=== PATIENT | female | born 1975 | race Caucasian/White ===

== ENCOUNTER 2021-01-20 16:32 | Outpatient (CLI) | payer OTHER, SELFPAY ==
--- NOTE | ~2021-01-20 | MM_ITS ---
EXAMINATION: MM scrn emilia implant BI w yinka HISTORY: Screening mammogram TECHNIQUE: Craniocaudal and mediolateral oblique 3-D tomosynthesis images with implant displacement a nd synthetic 2-D images were generated. Craniocaudal and mediolateral oblique views of the breasts wi thout implant displacement were obtained using full field digital mammography. CAD analysis was submi tted and interpreted. COMPARISON: Comparison to multiple prior studies sequentially, with oldest reviewed study dated 12/13. BREAST PARENCHYMAL COMPOSITION: The breasts are heterogeneously dense, which may obscure small masses . FINDINGS: There is no evidence of suspicious mass, calcification, or architectural distortion to sugg est malignancy in either breast. There has been no suspicious interval change. IMPRESSION: 1. No mammographic evidence of malignancy. 2. Recommend routine screening mammography in one year. BI-RADS Category 1: Negative Reviewed, dictated and finalized at location A.
== END 2021-01-20 16:33 | disposition home or self-care (01) ==
LOC: ANHIMG 16:41
PROVIDERS: PCP Family Medicine; Visit Provider Obstetrics & Gynecology
DX: Z12.31 Encounter for screening mammogram for malignant neoplasm of breast (principal)
CPT/HCPCS: 77063; 77067

== ENCOUNTER 2021-03-18 12:42 | Outpatient (CLI) | payer OTHER, SELFPAY ==
--- NOTE | ~2021-03-18 | MMUS_ITS ---
EXAMINATION: MM diag emilia implant RT w yinka, US breast RT limited HISTORY: Palpable right breast abnormality. TECHNIQUE: Additional 3-D tomosynthesis images of the right breast were performed and synthetic 2-D i mages were generated. CAD analysis was submitted and interpreted. High resolution Limited right breas t ultrasound was performed. COMPARISON: Comparison to multiple prior studies sequentially, with oldest reviewed study dated 03/2012. BREAST PARENCHYMAL COMPOSITION: The breasts are heterogenously dense, which may obscure small masses. FINDINGS: MAMMOGRAPHIC FINDINGS: There are no suspicious masses, calcifications or architectural distortion in the right breast to sug gest malignancy. On the spot MLO view there is a small lymph node in the area of palpable concern ove rlying the pectoralis muscle. ULTRASOUND: Limited right breast ultrasound: At 10:00, 12 cm from the nipple nipple in the area of palpable nellie rn there is a 5 mm lymph node. No suspicious masses to suggest malignancy. IMPRESSION: 1. No evidence for malignancy in the right breast. 2. Routine yearly screening mammogram and regular clinical breast examination are recommended. BI-RADS Category 2: Benign finding(s). Reviewed, dictated and finalized at location A. IMPRESSION: 1. No evidence for malignancy in the right breast. 2. Routine yearly screening mammogram and regular clinical breast examination a re recommended. BI-RADS Category 2: Benign finding(s).
== END 2021-03-18 12:43 | disposition home or self-care (01) ==
PROVIDERS: PCP Family Medicine; Visit Provider Obstetrics & Gynecology
DX: N63.31 Unspecified lump in axillary tail of the right breast (principal)
CPT/HCPCS: 76642; 77061; 77065; G0279

== ENCOUNTER 2024-03-20 12:09 | Outpatient (CLI) | payer OTHER, SELFPAY ==
--- NOTE | ~2024-03-20 | MM_ITS ---
EXAMINATION: MM scrn emilia implant BI w yinka HISTORY: Screening mammogram TECHNIQUE: Craniocaudal and mediolateral oblique 3-D tomosynthesis images with implant displacement a nd synthetic 2-D images were generated. Craniocaudal and mediolateral oblique views of the breasts wi thout implant displacement were obtained using full field digital mammography. CAD analysis was submi tted and interpreted. COMPARISON: 01/20/2021, 12/13/2018 BREAST PARENCHYMAL COMPOSITION: The breasts are heterogeneously dense, which may obscure small masses . FINDINGS: There is no evidence of suspicious mass, calcification, or architectural distortion to sugg est malignancy in either breast. There has been no suspicious interval change. IMPRESSION: No mammographic evidence of malignancy. Recommend routine screening mammography in one year. BI-RADS Category 1: Negative Reviewed, dictated and finalized at [facility].
== END 2024-03-20 12:10 | disposition home or self-care (01) ==
LOC: CHSIMG 12:12
PROVIDERS: Visit Provider Nurse Practitioner Family
DX: Z12.31 Encounter for screening mammogram for malignant neoplasm of breast (principal)
CPT/HCPCS: 77063; 77067

== ENCOUNTER 2025-01-28 09:51 | Outpatient (CLI) | payer OTHER, SELFPAY ==
--- NOTE | ~2025-01-28 | MMUS_ITS ---
EXAMINATION: US breast RT complete, MM diag emilia implant RT w yinka HISTORY: Right breast pain TECHNIQUE: Additional 3-D tomosynthesis images of the right breast were performed and synthetic 2-D i mages were generated. CAD analysis was submitted and interpreted. High resolution complete right elis st ultrasound was performed. COMPARISON: Comparison to multiple prior studies sequentially, with oldest reviewed study dated 12/13. BREAST PARENCHYMAL COMPOSITION: Dense: The breasts are heterogeneously dense, which may obscure small masses FINDINGS: MAMMOGRAPHIC FINDINGS: There are no suspicious masses, calcifications or architectural distortion in the right breast to sug gest malignancy. There is a subpectoral breast implant. ULTRASOUND: Complete US of all 4 quadrants of the breast/s and retroareolar region was reviewed. Normal heterogen eous echotexture without focal solid or cystic mass. IMPRESSION: 1. No evidence for malignancy in the right breast. 2. Routine yearly screening mammogram and regular clinical breast examination are recommended. BI-RADS Category 1: Negative Reviewed, dictated and finalized at location B. IMPRESSION: 1. No evidence for malignancy in the right breast. 2. Routine yearly screening mammogram and regular clinical breast examination a re recommended. BI-RADS Category 1: Negative
--- OUTSIDE RECORDS SUMMARY | 2025-01-28 10:04 | XMS_ITS ---
Author Organization [facility] [address] [facility] ([address]) Address [address] [place] [id number] Care Team Providers Care Dental Professional Name Role Phone Lee Parker [phone] REASON FOR VISIT Pellet Insertion #2/Tirzepatide follow-up Encounters Encounter Location Date Provider Diagnosis [facility] ([address]) [address] [address] 11/15/2023 Lee Parker Plan Of Treatment No Information Progress Notes * Cristi WHITLOCKaDOB:1975 (49 yo F)Acc No.[id number]:11/15/2023 Weight Loss Patient: Cristi CANALESa Provider: Ke Parker MD :1975 A ge:48 Y S ex:Female Date:11/15/2023 Address:[facility] [address] [facility] Subjective: * Chief Complaints: * 1 . Pellet Insertion #2/Tirzepatide follow-up. * Medical History: Objective: * Vitals: Assessment: Plan: * Treatment: * Billing Information: * Visit Code: * Procedure Codes: * Electronic signature of Flaco Parker MD, FAAAAI on 01/28/2025 at 10:04 AM CDT Sign off status: Pending * Provider: Ke Parker MD Date: 11/15/2023 Generated for Printi ng/Faxing/eTransmitting on: 01/28/2025 10:04 AM CDT
--- OUTSIDE RECORDS SUMMARY | 2025-01-28 10:04 | XMS_ITS | Encounter Summary ---
Author Organization [facility] Address [address] [place] [address] Care Team Providers Care Steward/Stewardess Club Car Name Role Phone Walt Warren MD Primary Care Provider [phone] Reason for Referral * Surgical (Routine) - Closed Specialty Diagnoses / Procedures Referred By Nabila estrella Referred To Contact UROLOGY Diagnoses Calculus of ureter ureteral calculi Procedures Case request operating room: CYSTOSCOPY, URETEROSCOPY, STONE, STENT Delmar Garcia MD [facility] [address], [address], [address] [address] Phone: tel: fax: Referral ID Status Reason Start Date Expiration Date Visits Re quested Visits Authorized [id number] Closed 03/20/2019 04/19/2020 1 1 Encounter Details Date Type Department Care Team (Late st Contact Info) Description 03/20/2019 Prep for Procedure [facility] [address] [id number] Delmar Garcia MD Social History Tobacco Use Types Packs/Day Years Used Date Smoking Tobacco: Never Smokeless Tobacco: Never Alcohol Use Standard Drinks/Week Comments Yes 0 (1 standard drink = 0.6 oz pur e alcohol) AUDIT-C Answer Date Recorded Frequency of Alcohol Consumption 2-3 times a cheryle tripp 03/14/2019 Average Number of Drinks Not on file 019 Frequency of Binge Drinking Not on file 03/03 Comments No Sex and Gender Information Value Date Recorded Sex Assigned at Not on file Legal Sex Female 7:56 PM CDT Gender Identity Not on file Sexual Orientation Not on file documented as of this encounter Plan of Treatment Scheduled Orders Name Type Priority Associated Diagnoses Orde r Schedule Case request operating room: CYSTOSCOPY, URETEROSCOPY, STONE, STENT Case Request Routine Once for 1 Occur rences starting 03/20/2019 until 03/20/2019 documented as of this encounter Visit Diagnoses Diagnosis Ureteral calculus- Primary Calculus of ureter documented in this encounter Care Teams Steward/Stewardess Club Car Relationship Specialty Start Date End Date Walt Warren MD [address] [place] [address] PCP - General FAMILY PRACTICE 08/17/18 documented as of this encounter
--- OUTSIDE RECORDS SUMMARY | 2025-01-28 10:04 | XMS_ITS | Encounter Summary ---
Author Organization [facility] Address [address] [place] [address] Care Team Providers Care Live Study Manager Name Role Phone Walt Warren MD Primary Care Provider [phone] Encounter Details Date Type Department Care Team (Late st Contact Info) Description 01/31/2018 Abstract [facility] Conversion Joon Law MD [address] [address] Social History Tobacco Use Types Packs/Day Years Used Date Smoking Tobacco: Never Assessed Comments Unknown Sex and Gender Information Value Date Recorded Sex Assigned at Not on file Legal Sex Female 7:56 PM CDT Gender Identity Not on file Sexual Orientation Not on file documented as of this encounter Miscellaneous Notes * Letter - Joon Law MD - 01/31/2018 12:00 AM CDT 01-31-2018 , [place] [address] : 1975 Lab Order: CMP; U WReflex to Cx, CBC Z00.00 Encntr for general adult medical exam w/o abnormal findings Fasting [x] Non-Fasting [] Normal [x] Stat [] DYE HAND documented in this encounter Plan of Treatment Not on file documented as of this encounter Visit Diagnoses Not on filedocumented in this encounter Care Teams Live Study Manager Relationship Specialty Start Date End Date Walt Warren MD [address] [place] [address] PCP - General FAMILY PRACTICE 08/17/18 documented as of this encounter
--- OUTSIDE RECORDS SUMMARY | 2025-01-28 10:04 | XMS_ITS | Patient Health Record ---
Author Organization Replaced By [facility] [employer] [facility] ([address]) Address [address] [place] [address] Care Team Providers Care Under Water Assistant Name Role Phone Lee Parker Unavailable [phone] Reason For Referral No Information Medications Medication SIG (Take, Route, Frequency, Duration) Notes Start Date End Date Status SUPERVISOR TRAVEL TRAILER THYROID 30 mg 1 tab(s) orally once a day x 1 week; Duration: 7 days No substitions. 08/23/2023 Active SUPERVISOR TRAVEL TRAILER Thyroid 30 MG 1 tab(s) orally once a day x 1 week; Duration: 7 days No substitions. 08/23/2023 Active SUPERVISOR TRAVEL TRAILER THYROID 60 mg 1 tab(s) orally once a day, thereafter; Duration: 30 days No substitutions, start after 1 week of 30 mg daily. 08/23/2023 Active SUPERVISOR TRAVEL TRAILER Thyroid 60 MG 1 tab(s) orally once a day, thereafter; Duration: 30 days No substitutions, start after 1 week of 30 mg daily. 08/23/2023 Active Problems Problem Type SNOMED Code ICD Code Onset Dates Problem Status W/U Status Risk Notes Problem Hypothyroidism (43087097) Hypothyroidism, unspecified (E03.9) Active confirmed Problem Morbid obesity (disorder) (727362740) Morbid (severe) obesity due to excess calories (E66.01) Active confirmed Problem Malaise (726253677) Other malaise (R53.81) Active confirmed Problem Chronic fatigue syndrome (disorder) (24883593) Chronic fatigue, unspecified (R53.82) Active confirmed Problem Fatigue (92245104) Other fatigue (R53.83) Active confirmed Problem Hormone replacement therapy (305445051) Hormone replacement therapy (Z79.890) Active confirmed Plan Of Treatment Pending Test Test Name Order Date -HRT Female Post Pellet w/o TPO 08/23/19 24
--- OUTSIDE RECORDS SUMMARY | 2025-01-28 10:05 | XMS_ITS | Clinical Summary ---
Author Organization [facility] Address [address] [place] [address] Care Team Providers Care Oil Plant Operator Name Role Phone Walt Warren MD Primary Care Provider [phone] Allergies No known active allergies Medications No known medications Active Problems Problem Noted Date Diagnosed Date Ureteral calculus 03/14/2019 Renal colic on left side 03/14/2019 Family History Medical History Relation Comments renal failure Father Kidney Cancer Paternal Grandmother bladder cancer Paternal Grandmother Relation Status Comments Father Paternal Grandmother Social History Tobacco Use Types Packs/Day Years Used Date Smoking Tobacco: Never Smokeless Tobacco: Never Alcohol Use Standard Drinks/Week Comments Yes 0 (1 standard drink = 0.6 oz pur e alcohol) OCCASIONAL AUDIT-C Answer Date Recorded Frequency of Alcohol Consumption 2-3 times a wee k 03/14/2019 Average Number of Drinks Not on file Frequency of Binge Drinking Not on file 03/03 Comments No Sex and Gender Information Value Date Recorded Sex Assigned at Not on file Legal Sex Female 7:56 PM CDT Gender Identity Not on file Sexual Orientation Not on file Last Filed Vital Signs Vital Sign Reading Time Taken Comments Blood Pressure 106/54 01/26/2022 9:39 AM CDT Pulse 58 01/26/2022 9:39 AM CDT Temperature 36.5 C (97.7 F) 03/26/2019 10:50 AM CDT Respiratory Rate 16 01/26/2022 9:39 AM CDT Oxygen Saturation 96% 01/26/2022 9:39 AM CDT Inhaled Oxygen Concentration - - Weight 87.5 kg (193 lb) 01/26/2022 9:09 AM CDT Height 170.2 cm (5' 7) 01/26/2022 9:09 AM CDT Body Mass Index 30.23 01/26/2022 9:09 AM CDT Plan of Treatment Health Maintenance Due Date Last Done Comments Cervical Cancer Screening Pa p Smear (Age 30 to 64) Every 3 Years 1974 Colorectal Cancer Screening Colonoscopy (10 Years) 1974 Annual Physical 1977 DTaP, Tdap and Td Vaccines ( 1 - Tdap) 1993 Hepatitis B Vaccines (1 of 3 - 19+ 3-dose series) 1993 Cervical Cancer Screening Pa p with HPV Testing (Age 30 to 64) Every 5 Years 2004 Cervical Cancer Screening with HPV 2004 Mammogram Screening 2014 COVID-19 Vaccine ( - 2023-2 5 season) 2024 Pneumococcal Vaccine: 50+ Ye ars (1 of 1 - PCV) 2024 Zoster Vaccines (1 of 2) 2024 Hepatitis C Completed 03/18/2019 Meningococcal B Vaccine Aged Out No l onger eligible based on patient's age to complete this topic Meningococcal Vaccine Aged Out No mayco anne eligible based on patient's age to complete this topic RSV Immunizations Under 20 Months Aged Out No longer eligible based on patient's age to complete this topic Medical Devices Implanted Type Area Technical Sourcing Recruiter Device Identifier Shelf Expiration Date Model / Serial / Lot Breast Implants Silicone Ureteral Stent Procedures Procedure Name Priority Date/Time Associated Diagnosis Comments HEPATITIS C ANTIBODY Routine 03/18/2019 8:02 AM CDT Cervical lymphadenopathy from Last 3 Months or Most Recently Relevant to Health Maintenance Results * HEPATITIS C ANTIBODY (03/18/2019 8:02 AM CDT) HEPATITIS C AB NON-REACTI VE NON-REACTI VE 03/18/2019 3:[address] [facility] 03/18/2019 8:02 AM CDT us Walt Warren MD LABORATORY Final Res ult [facility] [address] [place] [address], from Last 3 Months or Most Recently Relevant to Health Maintenance Insurance [employer] Advance Directives Documents on File Type Date Recorded Patient Collection Systems Administrator Expl anation Advance Directives and Living Will 03/15/2019 12:00 AM ADVANCED DIRECTIVES Care Teams Oil Plant Operator Relationship Specialty Start Date End Date Walt Warren MD [address] [place] [address] PCP - General FAMILY PRACTICE 08/17/18
--- OUTSIDE RECORDS SUMMARY | 2025-01-28 10:05 | XMS_ITS ---
Author Organization [facility] ([address]) Address [address] [facility] [address] [place] [address] Care Team Providers Care Medical Claims Manager Name Role Phone Lee Parker Unavailable [phone] [facility], Provider Unavailable Unavailab le REASON FOR VISIT Multum To Medispan Conversion Encounter Medications Medication SIG (Take, Route, Frequency, Duration) Notes Start Date End Date Status DIET KITCHEN COOK Thyroid 30 MG 1 tab(s) orally once a day x 1 week; Duration: 7 days No substitions. 08/23/2023 Active DIET KITCHEN COOK Thyroid 60 MG 1 tab(s) orally once a day, thereafter; Duration: 30 days No substitutions, start after 1 week of 30 mg daily. 08/23/2023 Active Encounters Encounter Location Date Provider Diagnosis [address] [address] 12/16/2023 Provider ZZ-Migration Plan Of Treatment No Information Progress Notes * Cristi WHITLOCKaDOB:1975 (49 yo F)Acc No.[id number]:12/16/2023 Patient: Tressa VALENCIAARMANDOCristia Provider: Ke conway Migration :1975 A ge:48 Y S ex:Female Date:12/16/2023 [facility] Subjective: * Chief Complaints: * 1 . Multum To Medispan Conversion Encounter. * Medical History: * Medications: T aking DIET KITCHEN COOK Thyroid 30 MG Tablet 1 tab(s) orally once a day x 1 week , Notes to Pharmacist: No substitions., Taking DIET KITCHEN COOK Thyroid 60 MG Tablet 1 tab(s) orally once a day, thereafter , Notes to Pharmacist: No substitutions, start after 1 week of 30 mg daily. Objective: * Vitals: Assessment: Plan: * Treatment: * Billing Information: * Visit Code: * Procedure Codes: * Electronic signature of Juliette PARMAR-Migration on 01/28/2025 at 10:04 AM CDT Sign off status: Pending * Provider: Ke conway Migration Date: 0 12/16/2023 Generated for Giles dockery/Scarlet/Shantalitting on: 01/28/2025 10:04 AM CDT
--- OUTSIDE RECORDS SUMMARY | 2025-01-28 10:05 | XMS_ITS | Data Portability ---
Author Organization [facility], [address] [facility] ([place]) Address [address] 4th [place] [address] Care Team Providers Care Accounting Auditor Name Role Phone BISHNU ELLISON Primary Care Provider Assessment Encounter Date Assessment Date Assessment LastModified by Organization Details LastModified Time 12/14/2023 12/14/2023 We talked about stretching. We will start physical therapy. She will call me back with who she wants to see. We gave her stretching exercises. We will ice this. Start the above prednisone. If she is not improving with her symptoms, we will refer to Dr. Polanco. Patient will contact us if worsening symptoms or decides she wants to do that. At this point, I think this is more of a soft tissue injury and I do not think an x-ray would be helpful, as she did not have any kind of injury, but we may consider doing that if she is having further problems. [facility] [email or web address] Not available 12/20/2023 12:29:20 03/06/2024 03/06/2024 1. We will try t o get her into endocrinology for discussing hormone levels and now that she has this diagnosis of pre-diabetes, but she knows it may book quite a ways out. She shows a good understanding. 2. We talked about the different medications to try to help her with weight loss. She will check with her insurance company on coverage. She has no MEN syndrome, no history of pancreatitis in her family. 3. Discussed the diagnosis of pre-diabetes. We will keep an eye on her A1c and recheck that again in 6 months either through her resource where she gets her lab work done or through us. We discussed treating her like she is a diabetic to prevent her from becoming diabetic, but she is already doing a low carb diet, very physically active, and so I am not sure how many more changes that she could make. That is why I want to try to promote helping her with weight loss if her insurance company will cover one of the above meds. 4. Already on a probiotic. Already seeing a GI specialist. Already has a scope scheduled for tomorrow. Encouraged her to discuss these symptoms with them. We will check an ova and parasites as she did travel to [place] not that long ago. We talked about using Beano or Gas-X prophylactically before she eats something that she thinks may cause bloating. She shows a good understanding of all the above and intent to comply with that plan. [facility] [email or web address] Not available 03/06/2024 18:02:02 05/21/2024 05/21/2024 We will start topiramate and see if that helps with her headaches as well as weight loss. We will start with 25 mg at bedtime and go up to b.i.d. and if she is tolerating this well after a month or two, would be comfortable with increasing to 50 mg twice a day. Patient shows a good understanding of all that and intent to comply with that plan. We will stop the phentermine as it was making her feel unusual. She will follow back in 3 months if she wants to continue the topiramate, sooner if having any problems or difficulties. [facility] [email or web address] Not available 05/22/2024 08:01:45 12/11/2024 12/11/2024 1. Continue phentermine. We will try going up to 30 mg and see if she tolerates this. If not, we will reduce back to 15 mg. She will continue to work on low carb diet and increasing exercise. 2. For the headaches, she will continue topiramate b.i.d. 3. B12 deficiency. She will continue her B12 injections. She will follow back up in 6 months, sooner if having any problems or difficulties. She shows good understanding of the above and intent to comply with the plan. [email or web address] Not available 12/11/2024 20:11:25 Plan of Treatment Reminders Order Date Submit Date Provider Last Modified By Organization Details Last Modified Time Details Appointments None recorded. Lab ova and parasites, unspecified specimen 2023 024 [email or web address] [facility] Only - [facility], [facility] [address], [address], 5 09:22:21 Referral None recorded. Procedures None recorded. Surgeries None recorded. Imaging None recorded. Medication Orders topiramate 25 mg tablet 2024 025 [facility], [address], [place], [address], 5 11:02:21 phentermine 15 mg capsule 2024 025 [facility], [address], [place], [address], 5 11:02:31 topiramate 25 mg tablet 2023 024 [id number], [address], [place], [address], 4 16:15:31 prednisone 20 mg tablet 2023 024 [facility], [address], [place], [address], 4 09:59:18 Patient TargetsNo targets recorded. Patient InstructionsNo instructions recorded. Reason for Referral None Reported. Results Created Date Observation Date Name Description Value Unit Range Abnormal Flag Note LastModifiedBy Organization Detail LastModifiedTime 03/06/2003/06/2024 vitam in B12, serum vitamin B12 357 pg/mL 180-91 4 <145 pg/mL = Defic ient 145 - 180 pg/mL = Inter media te Not Available [facility] [address] [place] [address], [address], 03/06/2024 15:56:46 04/18/20 24 04/01/2024 CT, abdom en + pelvi s, w/ contr ast No observ ation record ed. BARCODE Not Available 2023 11:52:17 04/29/20 24 08/24/2023 imagi ng/di agnos tic resul t No observ ation record ed. [email or web address] Not Available 16:21:05 05/08/20 24 05/08/2024 CT, heart , w/o contr ast, w/ coron anisha calci um score [facility] [address] [place] [address] Teleph one Name: Justina Will [id number] Exam Date: 2023 Age: 48 Physic juan luis: ROSA Ballard Mariss a : 1975 Examin ation: CT CARDIA C CALCIU M SCORE WO SCREEN ING EXAM: CT Cardia c Calciu m Score withou t screen ing HISTOR Y: Family histor y of chavez ry artery diseas e. TECHNI QUE: Low-do se CT images of the heart and chest were perfor med withou t contra st. Automa aldo exposu re contro l was utiliz ed to sugges t modula tion techni que. COMPAR TOM: None. FINDIN GS: Calciu m score is 0. Cardia c size is normal . The thorac ic aorta is normal in calibe r. There is a calcif ied granul sil in the right lower lobe. Remain ing lungs are clear. There is mild diffus e peribr onchia l thicke tanya. No effusi on or lympha denopa thy presen t. There are bilate ral breast implan ts. IMPRES ALEJANDRA: Calciu m score is 0. Electr onical ly signed in Alvarado cribe by: DAVID BRANNON MD on:05/08/2024 3:19 PM cc: Page PAGE 1 of NUMIAG ES 1 LEE Sc Only - [facility] [address] [place] [address], [address], 05/09/2024 10:18:41 05/29/20 24 05/27/2024 XR, shoul oracio, 2 or more view No observ ation record ed. BARCODE Not Available 2023 12:48:53 07/05/20 25 12/03/2018 imagi ng/di agnos tic resul t No observ ation record ed. [email or web address] Not Available 0 01/04/2025 01:30:25 01/05/20 25 12/05/2018 imagi ng/di agnos tic resul t No observ ation record ed. [email or web address] Not Available 0 01/04/2025 01:30:27 01/05/20 25 12/13/2018 imagi ng/di agnos tic resul t No observ ation record ed. [email or web address] Not Available 0 01/04/2025 01:30:28 Result Notes Documentation Provider Name and Address Organization Details Recorded Time Ct, Heart, W/o Contrast, W/ Coronary Calcium Score : [facility] [address] [place] [address] Name: Justina Whitlock Exam Date: 05/08/2024 Age: 48 Physician: ROSA Ballard Marissa : 1975 Examination: CT CARDIAC CALCIUM SCORE WO SCREENING EXAM: CT Cardiac Calcium Score without screening HISTORY: Family history of coronary artery disease. TECHNIQUE: Low-dose CT images of the heart and chest were performed without contrast. Automated exposure control was utilized to suggest modulation technique. COMPARISON: None. FINDINGS: Calcium score is 0. Cardiac size is normal. The thoracic aorta is normal in caliber. There is a calcified granuloma in the right lower lobe. Remaining lungs are clear. There is mild diffuse peribronchial thickening. No effusion or lymphadenopathy present. There are bilateral breast implants. IMPRESSION: Calcium score is 0. Electronically signed in PowerScribe by: DAVID BRANNON MD on:05/08/2024 3:19 PM cc: Page PAGE 1 of NUMPAGES 1 Not Available [facility] 05/09/2024 10:18:41 Problems Name Problem SNOMED Code Status Onset Date Resolution Date Notes Provider Name and Address Organization Details Recorded Time Hyperlipide isa 79496912 Active 2023 Jaymie Ballard PA-C [address] [place], [address] [place] [address] 4 08:33:36 Low back pain 230461813 Active 2023 Jaymie Ballard PA-C [address] [facility] [address], [place], [address], [facility] 4 08:33:45 Attention deficit hyperactivi ty disorder 728111856 Active 2023 Jaymie Ballard PA-C [address], [place], [address], [facility] 4 08:34:01 Testosteron e level below reference range 256677484 Active 2023 Jaymie Ballard PA-C [address], [place], [address], [facility] 4 08:34:16 Colitis 21607685 Active 2023 Jaymie Ballard PA-C [address] [facility], [place], [address], [facility] 4 08:34:26 History of calculus of kidney 635633535 Active 2023 Jaymie Ballard PA-C [address] , [place], [address], [facility] 4 08:35:06 Serum vitamin B12 below reference range 741559050 Active 2023 Jaymie Ballard PA-C [address], [place], [address], [facility] 4 08:35:57 Reduced libido 4587764 Active 2023 Jaymie Ballard PA-C [address], [place], [address], [facility] 4 08:36:23 Pain of left shoulder joint 2055501762711 9109 Active 2023 Jaymie Ballard PA-C [address] [place] [address], [address], [facility] 4 10:38:30 Decreased range of shoulder movement 893677698 Active 2023 Jaymie Ballard PA-C [address] [place] [address], [address], [facility] 4 10:38:44 Prediabetes 681573514 Active 2023 Jaymie Ballard PA-C [address] [place] [address], [address], [facility] 4 18:24:18 Family history of premature coronary heart disease 704034825 Active 2023 Jaymie Ballard PA-C [address] [facility], [place], [address], [facility] 4 22:44:22 Body mass index 30+ - obesity 699788807 Active 2023 [facility] 4 12:23:14 Acute cough Active 2024 [facility] 5 09:36:58 Problem Notes None recorded. Medical Equipment None Reported. Allergies No known drug allergies Medications Name Sig Start Date Stop Date Status Note LastModified by Organization Details LastModified Time cyclobenzap rine 10 mg tablet TAKE 1 TABLET BY MOUTH TWICE A DAY NEEDED FOR MUSCLE SPASMS 12/13 completed Not Available Not Available Not Available tretinoin 0.1 % topical cream APPLY TO FACE EVERY DAY active Not Available Not Available No t Available doxycycline hyclate 100 mg capsule TAKE 1 CAPSULE BY MOUTH TWICE DAILY UNTIL GONE 12/13 completed Not Available Not Available Not Available CombiPatch 0.05 mg-0.14 mg/24 hr transdermal APPLY 1 PATCH TOPICALLY TO SKIN TWICE A WEEK 12/11 completed Not Available Not Available Not Available fluconazole 150 mg tablet TAKE 1 TABLET BY MOUTH ONCE 03/06 completed Not Available Not Available Not Available benzonatate 200 mg capsule TAKE 1 CAPSULE BY MOUTH THREE TIMES DAILY NEEDED FOR COUGH FOR UP TO 10 DAYS 12/11 completed Not Available Not Available Not Available hydrocodone 5 mg-acetamin ophen 325 mg tablet TAKE 1 TABLET BY MOUTH 30-60 MINUTES BEFORE YOUR COLPOSCOP Y APPOINTME NT 12/11 completed Not Available Not Available Not Available ondansetron HCl 8 mg tablet TAKE 1 TABLET AT 11 AM THE DAY BEFORE SURGERY. THEN 1 TABLET EVERY 8 HOURS NEEDED FOR NAUSEA. 12/13 completed Not Available Not Available Not Available prednisone 20 mg tablet TAKE 2 TABLETS ONCE A DAY FOR 3 DAYS, THEN 1 TABLET ONCE A DAY FOR 3 DAYS, THEN TAKE 1/2 TABLET ONCE A DAY FOR 3 DAYS 03/06 completed Not Available Not Available Not Available estradiol 0.1 mg/24 hr semiweekly transdermal patch APPLY 1 PATCH TOPICALLY TWICE A WEEK 05/21 completed Not Available Not Available Not Available terconazole 0.8 % vaginal cream APPLY 1 APPLICATO RFUL VAGINALLY ONCE DAILY 03/06 completed Not Available Not Available Not Available Zithromax Z-Cortes 250 mg tablet TAKE 2 TABLETS (500 MG) BY ORAL ROUTE ONCE DAILY FOR 1 DAY THEN 1 TABLET (250 MG) BY ORAL ROUTE ONCE DAILY FOR 4 DAYS 12/11 completed Not Available Not Available Not Available permethrin 5 % topical cream MASSAGE INTO SKIN FROM HEAD TO FEET, LEAVE ON 8-14 HOURS, WASH OFF. 03/06 completed Not Available Not Available Not Available phentermine 15 mg capsule TAKE 1 TO 2 CAPSULES BY MOUTH ONCE DAILY TOLERATED active Not Available Not Available No t Available topiramate 25 mg tablet TAKE 1 TABLET BY MOUTH TWICE DAILY active Not Available Not Available No t Available metronidazo le 500 mg tablet TAKE 1 TABLET BY MOUTH TWICE DAILY WITH MEALS FOR 7 DAYS active Not Available Not Available No t Available omeprazole 40 mg capsule,del ayed release TAKE 1 CAPSULE BY MOUTH TWICE DAILY BEFORE BREAKFAST AND BEFORE SUPPER 12/11 completed Not Available Not Available Not Available meloxicam 7.5 mg tablet TAKE 1 TABLET BY MOUTH EVERY DAY 03/06 completed Not Available Not Available Not Available dicyclomine 20 mg tablet PLEASE SEE ATTACHED FOR DETAILED DIRECTION S 12/11 completed Not Available Not Available Not Available pantoprazol e 40 mg tablet,gely yed release Take 1 tablet by mouth once daily 2024 active Not Available Not Available Not Avai lable cyanocobala min (vit B-12) 1,000 mcg/mL injection solution INJECT 1 ML IN THE MUSCLE EVERY 2 WEEKS FOR 3 MONTHS active Not Available Not Available No t Available progesteron e micronized 200 mg capsule TAKE 1 CAPSULE BY MOUTH ONCE DAILY FOR 12 DAYS 12/13 completed Not Available Not Available Not Available BD Luer-Seamus Syringe 3 mL 25 gauge x 1 USE 1 SYRINGE WITH B12 INJECTION S ONCE EVERY MONTH active Not Available Not Available No t Available omeprazole 20 mg capsule,del ayed release TAKE 1 CAPSULE BY MOUTH TWICE DAILY 05/21 completed Not Available Not Available Not Available budesonide 0.5 mg/2 mL suspension for nebulizatio n PLEASE SEE ATTACHED FOR DETAILED DIRECTION S 12/11 completed Not Available Not Available Not Available lorazepam 1 mg tablet TAKE 1 TABLET BY MOUTH 30-60 MINUTES BEFORE YOUR PROCEDURE 12/11 completed Not Available Not Available Not Available ibuprofen 600 mg tablet TAKE 1 TABLET BY MOUTH EVERY 6 HOURS NEEDED FOR PAIN 12/13 completed Not Available Not Available Not Available methylpredn isolone 4 mg tablets in a dose pack USE DIRECTED 03/06 completed Not Available Not Available Not Available neomycin 500 mg tablet TAKE 2 TABLETS AT 1 PM, 2 PM, AND 10 PM THE DAY BEFORE SURGERY. 12/13 completed Not Available Not Available Not Available ondansetron 4 mg disintegrat ing tablet DISSOLVE 1 TABLET IN MOUTH EVERY 8 HOURS NEEDED FOR NAUSEA 12/13 completed Not Available Not Available Not Available naproxen 500 mg tablet TAKE 1 TABLET BY MOUTH 30 MINUTES BEFORE YOUR SCHEDULED COLPOSCOP Y APPOINTME NT 12/11 completed Not Available Not Available Not Available amoxicillin 875 mg-potassiu m clavulanate 125 mg tablet TAKE 1 TABLET BY MOUTH TWICE DAILY FOR 7 DAYS 12/08 completed Not Available Not Available Not Available dexlansopra zole 60 mg capsule,bip hase delayed release TAKE 1 CAPSULE BY MOUTH EVERY DAY DENIED BY INSURANCE 12/11 completed Not Available Not Available Not Available DUPLEX TRIMMER Thyroid 30 mg tablet TAKE 1 TABLET BY MOUTH ONCE DAILY FOR 7 DAYS 12/13 completed Not Available Not Available Not Available DUPLEX TRIMMER Thyroid 60 mg tablet TAKE 1 TABLET BY MOUTH ONCE DAILY STARTING AFTER 1 WEEK OF 30 MG DAILY 03/06 completed Not Available Not Available Not Available Samira 0.05 mg/24 hr transdermal patch APPLY 1 PATCH TOPICALLY TWICE A WEEK 12/13 completed Not Available Not Available Not Available Dupixent 300 mg/2 mL subcutaneou s pen injector active Not Available Not Available Not Available Mounjaro 2.5 mg/0.5 mL subcutaneou s pen injector inject 2.5 mg subcutane ously weekly 05/21 completed Not Available Not Available Not Available Vitals Date Recorded Body height Body mass index (BMI) Body weight Respiratory rate Body temperature Heart rate Oxygen saturation Oxygen saturation in Arterial blood by Pulse oximetry Systolic And Diastolic Provider Name and Address Organization Details Last Updated DateTime 5 167.64 cm 27.8 kg/m2 97133.8 9 g 16 /min 97.2 [degF] 69 /min 97 % 97 % 110/68 mm[Hg] [facility] 5 10:33:21 Date Recorded Body height Body mass index (BMI) Body weight Heart rate Oxygen saturation Oxygen saturation in Arterial blood by Pulse oximetry Systolic And Diastolic Provider Name and Address Organization Details Last Updated DateTime 4 167.64 cm 30.7 kg/m2 46111.2 5 g 63 /min 96 % 96 % 120/70 mm[Hg] Ronacarmella Ochoa [facility] 4 09:34:07 Date Recorded Body height Body mass index (BMI) Body weight Respiratory rate Body temperature Heart rate Oxygen saturation Oxygen saturation in Arterial blood by Pulse oximetry Systolic And Diastolic Provider Name and Address Organization Details Last Updated DateTime 4 167.64 cm 31.8 kg/m2 16252.7 g 20 /min 97.3 [degF] 57 /min 97 % 97 % 108/70 mm[Hg] [facility] 4 09:57:17 Date Recorded Body height Body mass index (BMI) Body weight Heart rate Respiratory rate Oxygen saturation Oxygen saturation in Arterial blood by Pulse oximetry Systolic And Diastolic Provider Name and Address Organization Details Last Updated DateTime 4 167.64 cm 31 kg/m2 96724.7 4 g 64 /min 16 /min 98 % 98 % 118/64 mm[Hg] Sho Dickinson [facility] 4 15:16:44 Social History None recorded. Functional Status None recorded. Mental Status None recorded. Family History Nothing Reported. Medical History No medical history recorded. Gynecological HistoryNo gynecological history recorded. Obstetrics History GPAL:G 0 P 0 0 0 0 Past Encounters Encounter ID Performer Location Encounter Start Date Encounter Closed Date Diagnosis/Indication Diagnosis SNOMED-CT Code Diagnosis ICD10 Code Diagnosis Note [id number] Jaymie Ballard PA-C [facility]) [address] [place] [address] 12/14/2023 09:24:05 12/22/2023 12:32:53 Pain of left shoulder joint [id number] 6890821 M25.512 Decreased range of shoulder movement 051866283 M25.035 [id number] Jaymie Ballard PA-C [facility]) [address] [place] [address] 03/06/2024 09:48:36 03/06/2024 11:11:42 Abdominal bloating 017495473 R14.0 Weight gain 1357173 R63. 5 Prediabetes 205027731 R7 3.03 [id number] Jaymie Ballard PA-C [facility]) [address] [place] [address] 05/21/2024 15:04:29 05/24/2024 06:59:43 Acute migraine 7606784130 25081 G43.909 Body mass index 30+ - obesity 306542065 E66.9 Z68.31 [id number] Jaymie Ballard PA-C [facility]) [address] [place] [address] 12/11/2024 10:20:46 12/11/2024 11:06:34 Acute migraine 7587922696 25572 G43.909 Body mass index 30+ - obesity 532766262 Z68.31 E66.9 Health Concerns Section Related Observation LastModified by Organization Detai ls LastModified Time None Recorded Concern Status LastModified by Organization Details LastModified Time None Recorded Advance Directives Directive None Recorded Payers Insurance Date Sequence Insurance Name Policy Number Policy [place] Covered Member ID [place] Member ID Guarantor Name 12/13/2024 1 [facility] - DOS ON OR AFTER 20 (MEDICAID REPLACEMENT - HMO) Justina Whitlock [id number] Justina Whitlock OBGyn Episode No OBEpisode recorded.
== END 2025-01-28 09:52 | disposition home or self-care (01) ==
LOC: CHSIMG 09:55
PROVIDERS: Visit Provider Family Medicine
DX: N64.4 Mastodynia (principal)
CPT/HCPCS: 76641; 77061; 77065; G0279

== ENCOUNTER 2025-01-29 09:14 | Outpatient (CLI) | payer OTHER, SELFPAY ==
--- NOTE | ~2025-01-29 | US_ITS ---
EXAMINATION: US pelvic complete w TV INDICATION: Postmenopausal bleeding Comparison:No prior studies for comparison. TECHNIQUE: Multiple transabdominal and endovaginal sonographic images of the pelvis performed. FINDINGS: The uterus measures 7 x 4 x 2.4 cm. The endometrial complex measures 3.3 mm. The right ovary measures 1.4 x 1.3 x 1 cm and the left ovary measures 2 x 1.6 x 1.8 cm. There are sm all follicles in each ovary. Normal doppler signal in both ovaries. There is no free fluid in the pelvis. There are no abnormal masses seen on either side. IMPRESSION: 1. Unremarkable pelvic ultrasound. Reviewed, dictated and finalized at location A.
--- OUTSIDE RECORDS SUMMARY | 2025-01-29 09:31 | XMS_ITS | Clinical Summary ---
Author Organization [facility] Address [address] [place] [address] Care Team Providers Care District Agent Name Role Phone Walt Warren MD Primary Care Provider [phone] Allergies No known active allergies Medications No [...] this topic Medical Devices Implanted Type Area Color Corrector Device Identifier Shelf Expiration Date Model / [...] VE NON-REACTI VE 03/18/2019 3:09 PM CDT [facility] 03/18/2019 8:02 AM CDT us Walt Warren MD LABORATORY Final Res ult [facility] [address] [place] [address], from Last 3 Months or Most Recently Relevant to Health Maintenance Insurance [place] Advance Directives Documents on File Type Date Recorded Patient Poem Writer Expl anation Advance Directives and Living Will 03/15/2019 12:00 AM ADVANCED DIRECTIVES Care Teams District Agent Relationship Specialty Start Date End Date Walt Warren MD [address] [place] [address] PCP - General FAMILY PRACTICE 08/17/18
--- OUTSIDE RECORDS SUMMARY | 2025-01-29 09:31 | XMS_ITS | Encounter Summary ---
Author Organization [facility] Address [address] [place] [address] Care Team Providers Care Paperhanger Assistant Name Role Phone Walt Warren MD Primary Care Provider [phone] Reason for Referral * Surgical (Routine) - Closed Specialty Diagnoses / Procedures Referred By Nabila estrella Referred To Contact UROLOGY Diagnoses Calculus of ureter ureteral calculi Procedures Case request operating room: CYSTOSCOPY, URETEROSCOPY, STONE, STENT Delmar Garcia MD [facility] [address], [address], [address] [address] Phone: tel: fax: Referral ID Status Reason Start Date Expiration Date Visits Re quested Visits Authorized [id number] Closed 03/20/2019 04/19/2020 1 1 Encounter Details Date Type Department Care Team (Late st Contact Info) Description 03/20/2019 Prep for Procedure [facility] [address] [address] Delmar Garcia MD Social History Tobacco Use [...] ureter documented in this encounter Care Teams Paperhanger Assistant Relationship Specialty Start Date End Date Walt Warren MD [address] [place] [address] PCP - General FAMILY PRACTICE 08/17/18 documented as of this encounter
--- OUTSIDE RECORDS SUMMARY | 2025-01-29 09:31 | XMS_ITS ---
Author Organization [facility]ly [facility] ([address]) Address [address] [place] [id number] Care Team Providers Care Inclined Railway Operator Name Role Phone Lee Parker [phone] REASON FOR VISIT Pellet Insertion #2/Tirzepatide follow-up Encounters Encounter Location Date Provider Diagnosis [facility] ([address]) [address] [address] 11/15/2023 Lee Parker Plan Of Treatment No Information Progress Notes * Cristi WHITLOCKaDOB:1975 (49 yo F)Acc No.[id number]:11/15/2023 Weight Loss Patient: Cristi CANALESa Provider: Ke Parker MD :1975 A ge:48 Y S ex:Female Date:11/15/2023 Address:[facility] Subjective: * Chief Complaints: * 1 . Pellet Insertion #2/Tirzepatide follow-up. * Medical History: Objective: * Vitals: Assessment: Plan: * Treatment: * Billing Information: * Visit Code: * Procedure Codes: * Electronic signature of Flaco Parker MD, FAAAAI on 01/29/2025 at 09:30 AM CDT Sign off status: Pending * Provider: Ke Parker MD Date: 11/15/2023 Generated for Printi ng/Faxing/eTransmitting on: 01/29/2025 09:30 AM CDT
--- OUTSIDE RECORDS SUMMARY | 2025-01-29 09:31 | XMS_ITS | Encounter Summary ---
Author Organization [facility] Address [address] [place] [address] Care Team Providers Care Decay Control Operator Name Role Phone Walt Warren MD Primary Care Provider [phone] Encounter Details Date Type Department Care Team (Late st Contact Info) Description 01/31/2018 Abstract [facility] Conversion Joon Law MD [address] [address] Social History Tobacco Use Types [...] 12:00 AM CDT 01-31-2018 , [place] [address] : 1975 Lab Order: CMP; U WReflex to Cx, CBC Z00.00 Encntr for general adult medical exam w/o abnormal findings Fasting [x] Non-Fasting [] Normal [x] Stat [] [employer] EMPLOYEE documented in this encounter Plan of Treatment Not on file documented as of this encounter Visit Diagnoses Not on filedocumented in this encounter Care Teams Decay Control Operator Relationship Specialty Start Date End Date Walt Warren MD [address] [place] [address] PCP - General FAMILY PRACTICE 08/17/18 documented as of this encounter
--- OUTSIDE RECORDS SUMMARY | 2025-01-29 09:31 | XMS_ITS ---
Author Organization [facility] ([address]) Address [address] [facility] [address] [place] [address] Care Team Providers Care Agriculture Instructor Name Role Phone Lee Parker Unavailable [phone] [facility], Provider Unavailable Unavailab le REASON FOR VISIT Multum To Medispan Conversion Encounter Medications Medication SIG (Take, Route, Frequency, Duration) Notes Start Date End Date Status FIELD ARTILLERY RADAR OPERATOR Thyroid 30 MG 1 tab(s) orally once a day x 1 week; Duration: 7 days No substitions. 08/23/2023 Active FIELD ARTILLERY RADAR OPERATOR Thyroid 60 MG 1 tab(s) orally once a day, thereafter; Duration: 30 days No substitutions, start after 1 week of 30 mg daily. 08/23/2023 Active Encounters Encounter Location Date Provider Diagnosis [address] [address] 12/16/2023 Provider ZZ-Migration Plan Of Treatment No Information Progress Notes * Cristi WHITLOCKaDOB:1975 (49 yo F)Acc No.[id number]:12/16/2023 Patient: Tressa VALENCIAARMANDOCristia Provider: Ke conway Migration :1975 A ge:48 Y S ex:Female Date:12/16/2023 [facility] Subjective: * Chief Complaints: * 1 . Multum To Medispan Conversion Encounter. * Medical History: * Medications: T aking FIELD ARTILLERY RADAR OPERATOR Thyroid 30 MG Tablet 1 tab(s) orally once a day x 1 week , Notes to Pharmacist: No substitions., Taking FIELD ARTILLERY RADAR OPERATOR Thyroid 60 MG Tablet 1 tab(s) orally once a day, thereafter , Notes to Pharmacist: No substitutions, start after 1 week of 30 mg daily. Objective: * Vitals: Assessment: Plan: * Treatment: * Billing Information: * Visit Code: * Procedure Codes: * Electronic signature of Juliette PARMAR-Migration on 01/29/2025 at 09:31 AM CDT Sign off status: Pending * Provider: Ke conway Migration Date: 0 12/16/2023 Generated for Giles dockery/Scarlet/[place] on: 01/29/2025 09:31 AM CDT
--- OUTSIDE RECORDS SUMMARY | 2025-01-29 09:31 | XMS_ITS | Patient Health Record ---
Author Organization [facility] [employer] [place] ([address]) Address [address] [place] [address] Care Team Providers Care Cutting Machine Fixer Name Role Phone Lee Parker Unavailable [phone] Reason For Referral No Information Medications Medication SIG (Take, Route, Frequency, Duration) Notes Start Date End Date Status PUMPMAN THYROID 30 mg 1 tab(s) orally once a day x 1 week; Duration: 7 days No substitions. 08/23/2023 Active PUMPMAN Thyroid 30 MG 1 tab(s) orally once a day x 1 week; Duration: 7 days No substitions. 08/23/2023 Active PUMPMAN THYROID 60 mg 1 tab(s) orally once a day, thereafter; Duration: 30 days No substitutions, start after 1 week of 30 mg daily. 08/23/2023 Active PUMPMAN Thyroid 60 MG 1 tab(s) orally once a day, thereafter; Duration: 30 days No substitutions, start after 1 week of 30 mg daily. 08/23/2023 Active Problems Problem Type SNOMED Code ICD Code Onset Dates Problem Status W/U Status Risk Notes Problem Hypothyroidism (99527783) Hypothyroidism, unspecified (E03.9) Active confirmed Problem Morbid obesity (disorder) (745261935) Morbid (severe) obesity due to excess calories (E66.01) Active confirmed Problem Malaise (600807507) Other malaise (R53.81) Active confirmed Problem Chronic fatigue syndrome (disorder) (97881165) Chronic fatigue, unspecified (R53.82) Active confirmed Problem Fatigue (03659618) Other fatigue (R53.83) Active confirmed Problem Hormone replacement therapy (234211927) Hormone replacement therapy (Z79.890) Active confirmed Plan Of Treatment Pending Test Test Name Order Date -HRT Female Post Pellet w/o TPO 08/23/19 24
== END 2025-01-29 09:15 | disposition home or self-care (01) ==
PROVIDERS: Visit Provider Family Medicine
DX: N95.0 Postmenopausal bleeding (principal)
CPT/HCPCS: 76830; 76856